=== PATIENT | male | born 1945 | race Caucasian/White ===

== ENCOUNTER → 2017-06-04 | Outpatient (CLI) | payer OTHER ==
--- NOTE | ~2017-06-04 | CR63 ---
[facility] A Service of [facility] / [facility] RADIOLOGY TEXT RESULTS PATIENT: ESTRELLA DURAND [facility]: [id number] : [birth year] UNIT #: [id number] AGE: [address]: Barbara Abreu MD SEX: M ORDER DR: [id number] [facility] [address] [place], [place] [address] [id number] O MR#: [id number] Acc #: [id number] NAME: ESTRELLA DURAND : 1945 SEX: M STUDY DATE/TIME: 06/04/2017 10:22 UNIT: [facility] ROOM: STUDY DESCRIPTION: CR Chest 2 View Attending Physician: Barbara Abreu M.D. Referring Physician: Barbara Abreu M.D. Ordering Physician: Barbara Abreu M.D. Primary Care Physician: Barbara Abreu M.D. MEDICAL IMAGING REPORT This report is preliminary unless electronic signature is present EXAM Chest 06/04/2017, [facility]. HISTORY 71-year-old male patient with history of cough, congestion, shortness of breath, wheezing. Symptoms x2 weeks. COMPARISON Chest 11/30/2015. FINDINGS Two-view chest demonstrates normal cardiac size and configuration. Aorta is mildly ectatic and stable. Hilar structures are preserved. Bilateral lungs are expanded and clear with pulmonary hyperinflation present. There is flattening of both hemidiaphragms. IMPRESSION Generalized pulmonary hyperinflation, consistent with COPD. Stable chest with no acute finding. Dictated by... Olvin Luis M.D. THIS IS AN ELECTRONICALLY VERIFIED REPORT Olvin Luis M.D. at 06/05/2017 8:21 AM ROSSI/charlotte TD: 06/04/2017 16:10 JOB #: [id number] MEDICAL IMAGING REPORT [facility] A Service of [facility] / [facility] RADIOLOGY TEXT RESULTS PATIENT: ESTRELLA DURAND [facility] [id number] : [birth year] UNIT #: [id number] AGE: [address]: Barbara Abreu MD SEX: M ORDER DR: Page 1 of 1 COPY
== END | disposition home or self-care (01) ==
LOC: CRAD 09:42
DX: R05 Cough (principal); J00 Acute nasopharyngitis [common cold]; R09.89 Other specified symptoms and signs involving the circulatory and respiratory systems; R91.8 Other nonspecific abnormal finding of lung field
CPT/HCPCS: 71020